=== PATIENT | female | born 1970 | race Caucasian/White ===

== ENCOUNTER → 2022-09-03 | Emergency (ER) | payer OTHER ==
[~2022-09-03] VITALS: Ht 167.6 cm; Wt 70.8 kg
[~2022-09-03] MED LIST: AMOX-CLAV 875-1 EACH PO
== END | disposition home or self-care (01) ==
LOC: ER 11:31
DX: J03.90 Acute tonsillitis, unspecified (principal); R30.0 Dysuria; I10 Essential (primary) hypertension; F32.A Depression, unspecified; Z88.2 Allergy status to sulfonamides; Z20.822 Contact with and (suspected) exposure to COVID-19